=== PATIENT | female | born 1965 | race Caucasian/White ===

== ENCOUNTER 2017-08-07 17:27 | Emergency (ER) | payer OTHER ==
[~2017-08-07] VITALS: Ht 157.5 cm; Wt 96.6 kg
[~2017-08-07 17:27] MED LIST: PENI250T3 PO
[2017-08-07 17:34] VITALS: BP 166/95; PULSE 85; TEMP 37; Ht 157.5 cm; Wt 96.6 kg
[2017-08-07 17:37] VITALS: O2SAT 99
[2017-08-07] MEDS ORDERED: AMOX875T PO (17:57)
--- NOTE | 2017-08-07 18:09 | EMERGENCY ROOM VISIT NOTE ---
History First contact with patient: 17:55 Chief Complaint: SORETHROAT Stated Complaint: SORE THROAT, POSSIBLE STREP History of Present Illness The patient is a 51 year old female who presents to the Emergency Room with complaints of a sore throat, and requesting a prescription for an antibiotic. The patient reports that her granddaughter is currently a patient in the emergency department and tested positive for group A strep. The patient has a history of rheumatic fever with aortic insufficiency. She is on chronic Pen- Vee K 250 mg twice a day, but reports that she is usually treated with amoxicillin or Augmentin with any concerning strep exposure. She tried to call her family doctor's office but they cannot get her in for one week. It was suggested that she go to an urgent care center, but when she called their facility, they had a 4 hour wait. She elected to come to the emergency department. The patient reports a sore throat, headache and mild nonproductive cough. Review of Systems 10 system review was performed and was negative except for pertinent positives and negatives as indicated in history of present illness Past Medical/Surgical History Medical Problems: (1) Appendectomy Medical Problems: (1) Appendectomy (2) Calculus Of Kidney (3) Esophageal reflux disease (4) Hypothyroidism Nos (5) Mixed Hyperlipidemia (6) Pyelonephritis Nos (7) Rheumatic Heart Dis Nos Family History No significant family history Social History Smoking Status: Never Smoker Alcohol Use: none Housing Status: lives with family Occupation Status: employed Current/Historical Medications Scheduled Amoxicillin & Pot Clavulanate (Augmentin 875-125 mg), 1 TAB PO BID Penicillin V Potassium (Veetids), 250 MG PO BID Physical Exam Vital Signs Date Time Temp Pulse Resp B/P (MAP) Pulse Ox O2 Delivery O2 Flow Rate FiO2 08/07/17 17:37 99 Room Air 08/07/17 17:34 37.0 85 18 166/95 99 Room Air Physical Exam CONSTITUTIONAL: Healthy and well nourished. Alert and oriented X 3 with positive affect. Patient does not appear in any acute distress. HEENT: Normocephalic, atraumatic. Pupils equal, round and reactive. No facial edema noted. Ears and nares are clear. OROPHARYNX: The patient has mild tonsillar hypertrophy with exudates. Uvula is midline. Negative trismus. NECK: Full active range of motion without discomfort. LYMPHATICS: No current posterior or anterior cervical chain adenopathy. RESPIRATORY: Clear to auscultation bilaterally with no wheezing, crackles, rhonchi or stridor. CARDIOVASCULAR: Regular rate and rhythm with no murmurs, rubs or gallops. GASTROINTESTINAL: Bowel sounds present in all quadrants. INTEGUMENTARY: No rash or other significant dermatologic conditions noted. NEUROLOGIC: No focal neurologic deficits noted. Medical Decision & Procedures ED Course Patient history and physical exam were performed. Nurse's notes were reviewed. Vital signs were reviewed showing an elevated blood pressure 166/95. The patient is afebrile and does not appear in any acute distress. I did speak with the granddaughter's nurse who reported that she did test positive with a rapid group A strep test. The patient is insisting that she receive a prescription for an antibiotic given her history of rheumatic heart disease. She reports that she is currently taking pen VK 500 mg twice daily for suppression therapy, and is usually treated with either Augmentin or amoxicillin with risk of infectious exposure. The patient was provided a prescription for Augmentin 875/125 twice a day 10 days. She was instructed to follow-up with her PCP in 2-3 days for recheck. The patient was also advised that her blood pressure is elevated in the emergency department 166/95. She was instructed to have her blood pressure rechecked by her PCP on her next office visit. The patient voiced understanding of all discharge instructions, was happy with plan of care, and rated her discomfort a 3 out of 10 at the conclusion of my exam. Medical Decision Blood Pressure Screening Patient's blood pressure: Elevated blood pressure Blood pressure disposition: Referred to PCP Impression Primary Impression: Exudative tonsillitis Additional Impressions: Strep throat exposure Elevated blood pressure reading Departure Information Dispostion Home / Self-Care Prescriptions Amoxicillin & Pot Clavulanate (Augmentin 875-125 mg) 1 Tab Tab 1 TAB PO BID for 10 Days, #20 TAB Prov: Ronny Clayton PA 08/07/17 Forms HOME CARE DOCUMENTATION FORM, IMPORTANT VISIT INFORMATION Patient Instructions My [facility] Additional Instructions Complete all Augmentin antibiotics as prescribed. Alternate ibuprofen and Tylenol as needed for pain. Read sore throat handout. Return for any progressively worsening symptoms. Suggest follow-up with your PCP in the next 2-3 days for recheck. Problem Qualifiers
== END 2017-08-07 18:07 | disposition home or self-care (01) ==
LOC: C.EDB 17:28 → C.EDC 18:07
DX: J03.90 Acute tonsillitis, unspecified (principal); Z20.818 Contact with and (suspected) exposure to other bacterial communicable diseases; R03.0 Elevated blood-pressure reading, without diagnosis of hypertension; I09.9 Rheumatic heart disease, unspecified; Z87.442 Personal history of urinary calculi; K21.9 Gastro-esophageal reflux disease without esophagitis; E03.9 Hypothyroidism, unspecified; E78.2 Mixed hyperlipidemia

== ENCOUNTER 2017-09-27 08:46 | Emergency (ER) | payer OTHER ==
[~2017-09-27] VITALS: Ht 157.5 cm; Wt 96.0 kg
[2017-09-27 08:50] VITALS: TEMP 36.6; Ht 157.5 cm; Wt 96.0 kg
[2017-09-27 10:04] LABS: BASO % 0.1 %; BASO ABS # 0.01 K/uL (0-0.2); EOS % 1.2 %; EOS ABS # 0.08 K/uL (0-0.5); HEMATOCRIT 43.3 % (37-47); HEMOGLOBIN 14.9 g/dL (12.0-16.0); IG# 0.02 K/uL (0.00-0.02); LYMPH % 31.5 %; LYMPH ABS # 2.12 K/uL (1.2-3.4); MEAN CELL VOLUME 89.1 fL (80-100); MEAN CORPUSCULAR HEMOGLOBIN 30.7 pg (25-34); MEAN CORPUSCULAR HGB CONC 34.4 g/dl (32-36); MEAN PLATELET VOLUME 9.9 fL (7.4-10.4); MONO % 7.9 %; MONO ABS # 0.53 K/uL (0.11-0.59); NEUT ABS # 3.97 K/uL (1.4-6.5); PLATELET COUNT 191 K/uL (130-400); RED CELL DISTRIBUTION WIDTH CV 13.5 % (11.5-14.5); RED CELL DISTRIBUTION WIDTH SD 43.6 fL (36.4-46.3); WHITE BLOOD COUNT 6.73 K/uL (4.8-10.8)
[2017-09-27 10:17] LABS: ALBUMIN 3.8 gm/dl (3.4-5.0); ALT/SGPT 35 U/L (12-78); AST/SGOT 21 U/L (15-37); BLOOD UREA NITROGEN 10 mg/dl (7-18); CALCIUM 8.6 mg/dl (8.5-10.1); CARBON DIOXIDE 30 mmol/L (21-32); CREATININE 0.71 mg/dl (0.60-1.20); GLUCOSE 92 mg/dl (70-99); LIPASE 98 U/L (73-393); POTASSIUM 3.7 mmol/L (3.5-5.1); SODIUM 138 mmol/L (136-145)
[2017-09-27 10:22] LABS: ALKALINE PHOSPHATASE 84 U/L (45-117); CKMB 1.1 ng/ml (0.5-3.6); TOTAL PROTEIN 7.2 gm/dl (6.4-8.2)
--- NOTE | 2017-09-27 10:43 | DIAGNOSTIC IMAGING REPORT ---
PA CHEST WITH ABDOMINAL SERIES CLINICAL HISTORY: Atypical chest pain. Epigastric abdominal pain. FINDINGS: A PA chest radiograph is compared to study dated 03/07/2013. The cardiomediastinal silhouette is unremarkable. Chronic interstitial thickening is unchanged. The lungs and pleural spaces are clear. No pneumothorax is seen. The bony thorax is grossly intact. Supine and erect abdominal radiographs are correlated with abdominal CT dated 10/15/2015. There is a nonobstructed abdominal bowel gas pattern. Mild colonic fecal retention is noted. No evidence of intraperitoneal free air is seen. There are no abnormal abdominal calcifications. Pelvic phleboliths are observed. The lumbosacral spine and bony pelvis appear intact. IMPRESSION: 1. No active disease in the chest. 2. Nonobstructed abdominal bowel gas pattern. Electronically signed by: Jamel Dixon M.D. 09/27/2017 10:42 AM Dictated Date/Time: 09/27/2017 10:40 AM
--- NOTE | 2017-09-27 12:15 | EMERGENCY ROOM VISIT NOTE ---
History First contact with patient: 08:56 Chief Complaint: GI ASSESSMENT Stated Complaint: CHEST DISCOMFORT,HEART MURMUR Nursing Triage Summary: heartburn for several days and decreased po intake, pt also has been having diarrhea History of Present Illness Patient is a 61-year-old white female with past medical history significant for hypothyroidism, rheumatic heart disease, intermittent reflux, who presents to the emergency department for evaluation of indigestion and upper abdominal pain 2 days. The patient states that her symptoms started 2 evenings ago after she had a spicy goulash for dinner. She reports that while eating, she "didn't feel right,", stating that she got "instant heartburn" after eating. She did not finish her meal, and drink water through the evening. She describes an upper chest burning sensation. It was not that painful that she needed to take any medication, and reports that she did sleep overnight although her sleep was restless. When she woke up in the morning she still had symptoms. She tried eating a candy cane for the mint to see if it would help with her symptoms. 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 She took one Zantac 150 mg tablet yesterday, after which she had diarrhea. She essentially didn't eat much of anything yesterday other than toast and ice cream, which she tolerated well. She does report persistent "burning irritation" in her left chest under her left breast, and underneath her ribs bilaterally. The pain is not pleuritic, no changes with eating or drinking. This morning the pain was under her right rib when she first arrived here, and now is on the left-hand side. She did take a Zantac again this morning, but did not eat anything and did not take her penicillin. She did not have a bowel movement today. She denies any abdominal pain, no nausea. She has not vomited. She has a history of rheumatic heart disease status post rheumatic fever as a child. She follows with cardiology regularly, has regular chest x-rays, EKGs and her last echocardiogram in 2016 was stable. She reports that she has aortic insufficiency. 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 Review of Systems Review of systems as per HPI. All other systems reviewed were negative. 10 systems reviewed. Past Medical/Surgical History Medical Problems: (1) Calculus Of Kidney (2) Elevated blood pressure reading (3) Esophageal reflux disease (4) Exudative tonsillitis (5) Hypothyroidism Nos (6) Mixed Hyperlipidemia (7) Pyelonephritis Nos (8) Rheumatic Heart Dis Nos (9) Strep throat exposure Surgical Problems: (1) Appendectomy Electronic medical records are reviewed and summarized as above/below. See Problem List. Family History No significant family history Social History Smoking Status: Never Smoker Alcohol Use: none Housing Status: lives with family Occupation Status: employed Current/Historical Medications Scheduled Penicillin V Potassium (Veetids), 250 MG PO BID Physical Exam Vital Signs Date Time Temp Pulse Resp B/P (MAP) Pulse Ox O2 Delivery O2 Flow Rate FiO2 09/27/17 12:33 85 18 160/94 94 09/27/17 11:05 68 20 160/94 98 Room Air 09/27/17 09:45 75 09/27/17 08:50 36.6 83 16 151/93 100 Physical Exam CONSTITUTIONAL: Patient is a well-appearing 51-year-old white female who is awake and alert and in no acute distress. EYES: Pupils equal, round, reactive to light and accommodation. EOMs intact without nystagmus. Sclera are anicteric. ENT: Tympanic membranes intact, with normal landmarks. External canals are clear. Oral and nasopharynx are clear. Mucous membranes are moist, no lesions , tongue and gums appear normal. NECK: No bruits auscultated. Supple without lymphadenopathy. No thyromegaly. No meningeal signs. Full active range of motion without discomfort. CARDIOVASCULAR: Regular rate and rhythm, with normal S1 and S2, no murmur or gallop or rub is heard. No carotid bruits auscultated. No JVD. Peripheral pulses easy to palpable. RESPIRATORY: Breath sounds equal and clear to auscultation without wheezes, rales, or rhonchi heard. Full and equal chest expansion without accessory muscle use or retractions. GI: Well-healed right lower quadrant surgical incision. Bowel sounds are present. Abdomen is soft, nontender, nondistended. No organomegaly. No pulsatile masses. No guarding or rebound. No hernias appreciated. MUSCULOSKELETAL: Full range of motion of extremities x 4 with good strength. No cyanosis, edema, joint tenderness or swelling. No deformity. INTEGUMENTARY: No lesions or rash, normal skin turgor. NEUROLOGICAL: Alert, oriented, and cooperative. Cranial nerves, sensation and strength grossly intact. Pupils round, equal, and react to light, EOMs are full. LYMPH: No lymphadenopathy. Medical Decision & Procedures ER Provider Diagnostic Interpretation: PA CHEST WITH ABDOMINAL SERIES CLINICAL HISTORY: Atypical chest pain. Epigastric abdominal pain. FINDINGS: A PA chest radiograph is compared to study dated 03/07/2013. The cardiomediastinal silhouette is unremarkable. Chronic interstitial thickening is unchanged. The lungs and pleural spaces are clear. No pneumothorax is seen. The bony thorax is grossly intact. Supine and erect abdominal radiographs are correlated with abdominal CT dated 10/15/2015. There is a nonobstructed abdominal bowel gas pattern. Mild colonic fecal retention is noted. No evidence of intraperitoneal free air is seen. There are no abnormal abdominal calcifications. Pelvic phleboliths are observed. The lumbosacral spine and bony pelvis appear intact. IMPRESSION: 1. No active disease in the chest. 2. Nonobstructed abdominal bowel gas pattern. Laboratory Results 09/27/17 09:50 Red Blood Count 4.86, Mean Corpuscular Volume 89.1, Mean Corpuscular Hemoglobin 30.7, Mean Corpuscular Hemoglobin Concent 34.4, Mean Platelet Volume 9.9, Neutrophils (%) (Auto) 59.0, Lymphocytes (%) (Auto) 31.5, Monocytes (%) (Auto) 7.9, Eosinophils (%) (Auto) 1.2, Basophils (%) (Auto) 0.1, Neutrophils # (Auto) 3.97, Lymphocytes # (Auto) 2.12, Monocytes # (Auto) 0.53, Eosinophils # (Auto) 0.08, Basophils # (Auto) 0.01 09/27/17 09:50 Test 09/27/17 09:35 09/27/17 09:50 Urine Color DK YELLOW Urine Appearance CLOUDY (CLEAR) Urine pH 6.5 (4.5-7.5) Urine Specific Daniel 1.025 (1.000-1.030) Urine Protein NEG (NEG) Urine Glucose (UA) NEG (NEG) Urine Ketones NEG (NEG) Urine Occult Blood NEG (NEG) Urine Nitrite NEG (NEG) Urine Bilirubin NEG (NEG) Urine Urobilinogen NEG (NEG) Urine Leukocyte Esterase SMALL (NEG) Urine WBC (Auto) /hpf (0-5) Urine RBC (Auto) /hpf (0-4) Urine Hyaline Casts (Auto) /lpf (0-5) Urine Epithelial Cells (Auto) /lpf (0-5) Urine Bacteria (Auto) (NEG) Urine RBC 5-10 /hpf (0-4) Urine WBC 5-10 /hpf (0-5) Urine Epithelial Cells >30 /lpf (0-5) Urine Bacteria 1+ (NEG) Urine Yeast PRESENT (NONE PRSENT) Urine Yeast (Auto) (NONE PRSENT) Urine Test NEG (NEG) White Blood Count 6.73 K/uL (4.8-10.8) Red Blood Count 4.86 M/uL (4.2-5.4) Hemoglobin 14.9 g/dL (12.0-16.0) Hematocrit 43.3 % (37-47) Mean Corpuscular Volume 89.1 fL (80-100) Mean Corpuscular Hemoglobin 30.7 pg (25-34) Mean Corpuscular Hemoglobin Concent 34.4 g/dl (32-36) Platelet Count 191 K/uL (130-400) Mean Platelet Volume 9.9 fL (7.4-10.4) Neutrophils (%) (Auto) 59.0 % Lymphocytes (%) (Auto) 31.5 % Monocytes (%) (Auto) 7.9 % Eosinophils (%) (Auto) 1.2 % Basophils (%) (Auto) 0.1 % Neutrophils # (Auto) 3.97 K/uL (1.4-6.5) Lymphocytes # (Auto) 2.12 K/uL (1.2-3.4) Monocytes # (Auto) 0.53 K/uL (0.11-0.59) Eosinophils # (Auto) 0.08 K/uL (0-0.5) Basophils # (Auto) 0.01 K/uL (0-0.2) RDW Standard Deviation 43.6 fL (36.4-46.3) RDW Coefficient of Variation 13.5 % (11.5-14.5) Immature Granulocyte % (Auto) 0.3 % Immature Granulocyte # (Auto) 0.02 K/uL (0.00-0.02) Anion Gap 3.0 mmol/L (3-11) Est Creatinine Clear Calc Drug Dose 101.3 ml/min Estimated GFR () 114.3 Estimated GFR (Non- 98.6 BUN/Creatinine Ratio 13.9 (10-20) Calcium Level 8.6 mg/dl (8.5-10.1) Total Bilirubin 0.8 mg/dl (0.2-1) Aspartate Amino Transf (AST/SGOT) 21 U/L (15-37) Alanine Aminotransferase (ALT/SGPT) 35 U/L (12-78) Alkaline Phosphatase 84 U/L (45-117) Total Creatine Kinase 70 U/L (26-192) Creatine Kinase MB 1.1 ng/ml (0.5-3.6) Creatine Kinase MB Ratio 1.6 (0-3.0) Troponin I < 0.015 ng/ml (0-0.045) Total Protein 7.2 gm/dl (6.4-8.2) Albumin 3.8 gm/dl (3.4-5.0) Globulin 3.4 gm/dl (2.5-4.0) Albumin/Globulin Ratio 1.1 (0.9-2) Lipase 98 U/L (73-393) ECG Indication: abdominal pain Rate (beats per minute): 79 Rhythm: sinus with SA Findings: no acute ischemic change, no ectopy Change: no significant change ED Course The patient was seen and evaluated as above. Her old records were reviewed. IV lock was. Laboratory studies were collected including CBC with differential , CMP, lipase and cardiac enzymes. Acute abdominal series was performed. EKG was obtained and was as noted above. The patient's laboratory studies are unremarkable. White count was not elevated. She is not anemic. Electrolytes, renal function, liver function and lipase are within normal limits. Urinalysis notes contamination, with greater than 30 epithelial cells. She does have these present, and did mention that she was beginning to experience yeast infection symptoms. Her cardiac enzymes are negative 1 with symptoms 2 days. Acute abdominal series was unremarkable. All laboratory and diagnostic imaging studies were reviewed with the patient and discussed with attending physician. She has had some upper abdominal discomfort 2 days. It seems to be GI in origin. Her EKG, chest x- ray and laboratory studies do not indicate a cardiac or pulmonary pathology. She has had a couple of doses of an H2 [place]. She was encouraged to continue this. She can also add a PPI for symptomatic relief until she can be seen by her PCP in follow-up. With regards to her yeast infection, she is on a low- dose penicillin prophylactically for history of rheumatic heart disease. She normally uses an [id number] Monistat treatment, and states that this should be adequate for her. She was encouraged to follow up with her primary care provider in one week for recheck. Return to the ED here for worsening symptoms. Differential diagnosis includes acute myocardial infarction, acute coronary syndrome, myocarditis, pericarditis, GERD, gastritis, esophagitis, PUD, esophageal perforation, pneumonia, pneumothorax, cardiomyopathy, musculoskeletal, anxiety, costochondritis, among others. Medical Decision See ED Course. Medication Reconcilliation Current Medication List: was personally reviewed by me Blood Pressure Screening Patient's blood pressure: Elevated blood pressure Blood pressure disposition: Elevated BP felt to be situational Impression Primary Impression: Upper abdominal pain Departure Information Referrals Rolando Guevara M.D. (PCP) Patient Instructions [facility] Additional Instructions Continue Zantac. May also take over the counter Prilosec according to package instructions. Acetaminophen(Tylenol) may be used for fever or pain. Use 1000mg every eight hours as needed. Avoid using more than 3000mg in a 24 hour period. This is available over the counter. Rest and drink plenty of fluids as tolerated. Slow sips of water or sports drinks are recommended instead of large amounts all at once. Continue current medications. Once your stomach is settled start with a clear liquid diet (jello, soup broth, etc.) and then advance as tolerated. You should avoid full, heavy meals for about 24 hrs from the time your symptoms resolved. Return to the ER immediately for worsening or persistent abdominal pain, vomiting, fevers, chest pains, difficulty breathing, black or bloody stools, worsening of your condition, or as needed. Follow up with your primary physician in 1-2 days for a recheck of your current condition.
[2017-09-27 12:33] VITALS: BP 160/94; PULSE 85; O2SAT 94
== END 2017-09-27 12:34 | disposition home or self-care (01) ==
LOC: C.EDB 08:48 → C.EDA 12:34
DX: R10.10 Upper abdominal pain, unspecified (principal); B37.9 Candidiasis, unspecified; K21.9 Gastro-esophageal reflux disease without esophagitis; R19.7 Diarrhea, unspecified; I09.9 Rheumatic heart disease, unspecified; R03.0 Elevated blood-pressure reading, without diagnosis of hypertension; Z79.2 Long term (current) use of antibiotics